=== PATIENT | male | born 1955 | race Caucasian/White ===

== ENCOUNTER 2016-11-12 07:55 | Outpatient (CLI) | payer BC | END 2016-11-12 07:56 | disposition home or self-care (01) | LOC: NAV LAB 07:55 | PROVIDERS: ATTEND Neurological Surgery | DX: Q76.2 Congenital spondylolisthesis (principal) | CPT/HCPCS: 36415; 82565 ==

== ENCOUNTER 2024-07-13 10:08 | Outpatient (CLI) | payer MEDICARE | END 2024-07-13 10:09 | disposition home or self-care (01) | LOC: NAV RAD 10:08 | PROVIDERS: ATTEND Family Medicine | DX: M25.511 Pain in right shoulder (principal); M19.011 Primary osteoarthritis, right shoulder ==